=== PATIENT | female | born 1965 | race Caucasian/White ===

== ENCOUNTER → 2017-04-15 | Outpatient (CLI) | payer OTHER | LOC: FIMAGING 10:47 | PROVIDERS: ATTEND Obstetrics & Gynecology | DX: Z12.31 Encounter for screening mammogram for malignant neoplasm of breast (principal); Z80.3 Family history of malignant neoplasm of breast | CPT/HCPCS: G0202 ==

== ENCOUNTER 2017-05-28 09:51 | Emergency (ER) | payer OTHER ==
[2017-05-28 09:59] VITALS: RESP 18
[2017-05-28 10:26] LABS: % IMMATURE GRANULYOCYTES 0.4 % (0.0-1.1); ABSOLUTE IMMATURE GRANULOCYTES 0.03 10^3/uL (0.00-0.10); ADD DIFF? NO; ADD MORPH? NO; ADD SCAN? NO; ATYPICAL LYMPHOCYTE FLAG 0 (0-99); FRAGMENT RBC FLAG 0 (0-99); HEMATOCRIT 41.7 % (38.0-47.0); HEMOGLOBIN 15.3 g/dL (12.6-16.3); LEFT SHIFT FLG 0 (0-99); LIPEMIA HEMOLYSIS FLAG 90 (0-99); MEAN CELL HEMOGLOBIN 33.3 pg (27.9-34.1); MEAN CELL HEMOGLOBIN CONCENTR. 36.7 g/dL (32.4-36.7); MEAN CELL VOLUME 90.8 fL (81.5-99.8); PLATELET CLUMPS FLAG 10 (0-99); PLATELET COUNT 305 10^3/uL (150-400); RED BLOOD CELL COUNT 4.59 10^6/uL (4.18-5.33); RED CELL DISTRIBUTION WIDTH 12.2 % (11.5-15.2)
[2017-05-28 10:31] LABS: ANION GAP 14 mEq/L (8-16); CALCIUM 9.5 mg/dL (8.5-10.4); CARBON DIOXIDE 22 mEq/l (22-31); CHLORIDE 98 mEq/L (97-110); CREATININE 0.8 mg/dL (0.6-1.0); GLOMERULAR FILTRATION RATE > 60; GLUCOSE 146 mg/dL (70-100); POTASSIUM 3.7 mEq/L (3.5-5.2); SODIUM 134 mEq/L (134-144)
[2017-05-28 10:43] LABS: TROPONIN I < 0.012 ng/mL (0.000-0.034)
--- NOTE | 2017-05-28 11:10 | CPEKG ---
Heart Rate: 85 RR Interval: 706 P-R Interval: 132 QRSD Interval: 76 QT Interval: 372 QTC Interval: 443 P [place]: -17 QRS [place]: 43 T Wave [place]: 11 EKG Severity - ABNORMAL ECG - EKG Impression: SINUS RHYTHM EKG Impression: CONSIDER LEFT VENTRICULAR HYPERTROPHY Electronically Signed By: Brock Butler 28-May-2017 15:24:55
--- NOTE | 2017-05-28 11:17 | EDPHY ---
H & P Stated Complaint: 1 week of taking hydroxyzine now with shakyness/dizzy HPI/ROS: Chief complaint: Dizziness and shakiness History of present illness: This is a 51-year-old female who presents to the emergency department for dizziness and shakiness. She reports the onset of symptoms over the last few days. She is concerned this is secondary to her starting new medications, specifically sertraline and hydroxyzine which she started about a week and half ago. She has noticed an increase in symptoms that she has increased the dose of these medications. She also noticed increasing depression although no suicidal ideation. She denies other associated signs or symptoms including no fevers or cold symptoms, no chest pain or shortness of breath, no pain or swelling in the legs. Review of systems: A 10 point review of systems was obtained and other than described above was negative - Personal History LMP (Females 10-55): 22-28 Days Ago Current Tetanus/Diphtheria Vaccine: Yes - Medical/Surgical History Hx Asthma: No Hx Chronic Respiratory Disease: No Hx Diabetes: No Hx Cardiac Disease: No Hx Renal Disease: No Hx Cirrhosis: No Hx Alcoholism: No Hx HIV/AIDS: No Hx Splenectomy or Spleen Trauma: No Other PMH: anxiety - Social History Smoking Status: Never smoked - Physical Exam Exam: General Appearance: Alert, nontoxic. Eyes: Pupils equal and round no pallor or injection. ENT, Mouth: Mucous membranes moist. Respiratory: There are no retractions, lungs are clear to auscultation. Cardiovascular: Regular rate and rhythm. Gastrointestinal: Abdomen is soft and non tender, no masses, bowel sounds normal. Neurological: Alert and oriented x4. Cranial nerves 2-12 grossly intact. Strength and sensation intact and symmetrical. Skin: Warm and dry, no rashes. Musculoskeletal: Neck is supple non tender. Extremities are symmetrical, full range of motion. Psychiatric: Patient is oriented X 3, there is no agitation. Constitutional: Initial Vital Signs Temperature (C) 36.4 C 05/28/17 09:55 Heart Rate 92 05/28/17 09:55 Respiratory Rate 18 05/28/17 09:55 Blood Pressure 166/112 H 05/28/17 09:55 O2 Sat (%) 94 05/28/17 09:55 O2 Delivery Mode Room Air Allergies/Adverse Reactions: No Known Allergies Allergy (Unverified 05/28/17 09:54) Home Medications: Medication Instructions Recorded ALPRAZolam [Xanax 0.5 MG (*)] 0.5 mg PO TID #6 tab 05/28/17 Acyclovir 05/28/17 Hydroxyzine HCl 05/28/17 Sertraline HCl 05/28/17 Medical Decision Making ED Course/Re-evaluation: Patient discussed with my secondary supervising physician Dr. Brock Butler. Patient presents to the emergency department for dizziness and shakiness. This appears to be concurrent with increasing new medications. She is afebrile and vital signs are stable. Physical exam is benign. Blood studies and EKG unremarkable. I do believe this is likely secondary to medications. I have asked her to discontinue these, I believe she can stop abruptly as she just started them and risk of withdrawal is low. She will be given a short course of Xanax for anxiety. She is to follow up with her primary care doctor this week for recheck and discussion about further medication use. Return precautions are given. Patient voiced understanding and agreement with plan. Differential Diagnosis: Included but not limited to medication side effects, electrolyte disturbances, cardiac disturbances, anxiety, depression - Data Points Laboratory Results: Laboratory Results 05/28/17 10:10 05/28/17 10:10 05/28/17 05/28/17 10:10 10:10 WBC 6.70 10^3/uL 10^3/uL (3.80-9.50) RBC 4.59 10^6/uL 10^6/uL (4.18-5.33) Hgb 15.3 g/dL g/dL (12.6-16.3) Hct 41.7 % % (38.0-47.0) MCV 90.8 fL fL (81.5-99.8) MCH 33.3 pg pg (27.9-34.1) MCHC 36.7 g/dL g/dL (32.4-36.7) RDW 12.2 % % (11.5-15.2) Plt Count 305 10^3/uL 10^3/uL (150-400) MPV 9.0 fL fL (8.7-11.7) Neut % (Auto) 69.2 % % (39.3-74.2) Lymph % (Auto) 20.1 % % (15.0-45.0) Tillman % (Auto) 9.0 % % (4.5-13.0) Eos % (Auto) 0.1 % L % (0.6-7.6) Baso % (Auto) 1.2 % % (0.3-1.7) Nucleat RBC Rel Count 0.0 % % (0.0-0.2) Absolute Neuts (auto) 4.63 10^3/uL 10^3/uL (1.70-6.50) Absolute Lymphs (auto) 1.35 10^3/uL 10^3/uL (1.00-3.00) Absolute Monos (auto) 0.60 10^3/uL 10^3/uL (0.30-0.80) Absolute Eos (auto) 0.01 10^3/uL L 10^3/uL (0.03-0.40) Absolute Basos (auto) 0.08 10^3/uL 10^3/uL (0.02-0.10) Absolute Nucleated RBC 0.00 10^3/uL 10^3/uL (0-0.01) Immature Gran % 0.4 % % (0.0-1.1) Immature Gran # 0.03 10^3/uL 10^3/uL (0.00-0.10) Sodium 134 mEq/L mEq/L (134-144) Potassium 3.7 mEq/L mEq/L (3.5-5.2) Chloride 98 mEq/L mEq/L (97-110) Carbon Dioxide 22 mEq/l mEq/l (22-31) Anion Gap 14 mEq/L mEq/L (8-16) BUN 8 mg/dL mg/dL (7-23) Creatinine 0.8 mg/dL mg/dL (0.6-1.0) Estimated GFR > 60 Glucose 146 mg/dL H mg/dL (70-100) Calcium 9.5 mg/dL mg/dL (8.5-10.4) Troponin I < 0.012 ng/mL ng/mL (0.000-0.034) Departure - Departure Disposition: Home, Routine, Self-Care Clinical Impression: Medication reaction Qualifiers: Encounter type: initial encounter Qualified Code(s): T88.7XXA - Unspecified adverse effect of drug or medicament, initial encounter Condition: Good Instructions: Sertraline (By mouth) Additional Instructions: Follow-up with your primary care doctor this week for recheck Discontinue the use of your medications until you discuss their use with your doctor If symptoms worsen or new symptoms develop return to the emergency room for recheck Referrals: Ana Peoples DO [Primary Care Provider] - As per Instructions Prescriptions: ALPRAZolam [Xanax 0.5 MG (*)] 0.5 mg PO TID #6 tab
[2017-05-28 11:34] VITALS: BP 161/110; PULSE 74; TEMP 98.4; O2SAT 96
== END 2017-05-28 11:32 | disposition home or self-care (01) ==
LOC: SUPCPDRO 09:51
DX: R42 Dizziness and giddiness (principal); T43.595A Adverse effect of other antipsychotics and neuroleptics, initial encounter

== ENCOUNTER → 2018-06-07 | Outpatient (CLI) | payer OTHER | LOC: FIMAGING 08:45 | PROVIDERS: ATTEND Obstetrics & Gynecology | DX: Z12.31 Encounter for screening mammogram for malignant neoplasm of breast (principal) ==